=== PATIENT | female | born 1965 | race Caucasian/White ===

== ENCOUNTER 2016-02-21 12:20 | Outpatient (CLI) | payer OTHER | END 2016-02-21 12:21 | disposition home or self-care (01) | DX: R92.8 Other abnormal and inconclusive findings on diagnostic imaging of breast (principal) ==

== ENCOUNTER 2016-10-11 12:05 | Outpatient (CLI) | payer OTHER ==
--- NOTE | 2016-10-11 17:56 | XRAY Report ---
COMPLETE LUMBAR SPINE: 10/11/2016 CLINICAL INDICATION: Back pain, chronic. AP, lateral, oblique, coned-down views of the lumbar spine demonstrate minimal degenerative disk and facet disease. There is no evidence of fracture or subluxation. The bowel gas pattern appears unrem arkable. IMPRESSION: MINIMAL DEGENERATIVE CHANGES. JOB #: [id number] EXT JOB #:[id number]
== END 2016-10-11 12:06 | disposition home or self-care (01) ==
LOC: LAB 12:05
PROVIDERS: ATTEND Physician Assistant Medical
DX: M51.36 Other intervertebral disc degeneration, lumbar region (principal); M47.9 Spondylosis, unspecified
CPT/HCPCS: 72110

== ENCOUNTER 2016-10-20 12:26 | Outpatient (CLI) | payer OTHER ==
--- NOTE | 2016-10-21 10:16 | MRI Report ---
EXAM: MRI LUMBAR SPINE WITHOUT CONTRAST EXAM DATE: 10/20/2016 01:20 PM. CLINICAL HISTORY: Worsening low back pain. Report of low back pain 1-1/2 years after lifting injury. COMPARISON: No prior MRI. TECHNIQUE: Multiplanar, multisequence T1-weighted and fluid-sensitive sequences of the lumbar spine f rom T12 to S1 without contrast. Other: None. FINDINGS: Spinal Cord: The conus terminates at L1. No signal abnormality in the visualized spinal cord. Alignment: Normal. No scoliosis or spondylolisthesis. Bone Marrow: Five vzu-oxy-eedwzut lumbar vertebral bodies are assumed. No acute vertebral body height loss or marrow edema. Incidental T11 vertebral body hemangioma. Disk Levels/Facets: T12-L1: Small chronic Schmorl's nodes. Otherwise unremarkable. L1-L2: Minimal degenerative disk disease posteriorly. Slight annular bulge. Otherwise unremarkable, n o stenosis. L2-L3: Minimal degenerative disk space dehydration and narrowing. Shallow broad-based bulge. Minimal anterior marginal spurring. Unremarkable facets. No stenosis. L3-L4: Minimal disk space dehydration and narrowing. Diffuse annular disk bulge. Additional more foca l intraforaminal disk extrusion on the right creating moderate to marked right foraminal stenosis wit h potential for right L3 nerve root impingement. This focal intraforaminal herniation measures about 8 x 6 mm. Patent central canal and left foramen. L4-L5: Minimally narrowed disk space. Bilateral intraforaminal disk protrusions, larger on the right than the left. Annular fissure is associated with the right intraforaminal protrusion. Patent central canal. Foraminal stenosis is mild on the left and moderate on the right. L5-S1: Minimal disk space narrowing and dehydration. Negligible facet arthropathy. Small focal disk p rotrusion with annular fissure to the right of midline, at the inferior junction of the right subarti cular and foraminal zones. Associated stenosis is mild. There is no evidence for nerve root impingeme nt or displacement. Musculature: Normal. No edema or fatty atrophy. Other: Approximately 3 cm circumscribed fluid signal structure is present in the pelvis near the midl ine superior to the expected location of the uterus; this is nonspecific, potentially a cyst or promi nent ovarian follicle. IMPRESSION: 1. Moderately prominent foraminal stenosis on the right from intraforaminal disk herniation at the L3 -L4 level with potential for nerve root impingement. 2. Intraforaminal disk protrusions at L4-L5 associated with foraminal stenosis that is mild on the le ft and moderate on the right. 3. Small right posterior paracentral disk protrusion with annular fissure at the L5-S1 level; associa terrance stenosis is minimal, no definite nerve root compression. 4. 3 cm pelvic cyst or cystlike structure, possibly of ovarian origin. Comment: The following findings are so common in adults without low back pain that while we report th eir presence, they must be interpreted with caution and in the context of the clinical situation. (Re marva Lee et al, Spine 2001) Prevalence of findings in patients without low back pain: Disk degeneration (any evidence): 92% Disk desiccation/T2 signal loss: 83% Disk height loss: 56% Disk bulge: 64% Disk protrusion: 32% Annular tear/high intensity zone: 38% [facility] Referring Provider Line: [phone] SITE ID: [id number]
== END 2016-10-20 12:27 | disposition home or self-care (01) ==
LOC: DI 12:26
PROVIDERS: ATTEND Physician Assistant Medical
DX: M54.5 Low back pain (principal); G89.29 Other chronic pain; M51.26 Other intervertebral disc displacement, lumbar region
CPT/HCPCS: 72148

== ENCOUNTER 2016-11-02 17:02 | Outpatient (CLI) | payer OTHER ==
--- NOTE | 2016-11-05 08:48 | Ultrasound Report ---
EXAM: PELVIC ULTRASOUND EXAM DATE: 11/02/2016 06:58 PM. CLINICAL HISTORY: Pelvic cyst on MRI 10/20/2016. LMP 10/31/2016. COMPARISON: Lumbar spine MRI 10/20/2016. TECHNIQUE: Realtime transabdominal pelvic scan performed to identify the uterus and adnexa and as an overview of other pelvic structures, followed by transvaginal scan to provide greater detail of the u terus and adnexa, with static image documentation. FINDINGS: Uterus: Anteverted position. 8.5 x 4.3 x 6.0 cm, volume 115 cc. Mildly heterogeneous myometrium with a solitary anterior intramural fibroid measuring 1.6 x 1.5 x 1.6 cm. Endometrium: 3-4 mm. Normal. Cervix: Nabothian cyst. Right Ovary: 3.2 x 2.1 x 2.4 cm, volume 8.2 cc. Normal echotexture. Contains a simple cyst/dominant f ollicle measuring 1.8 x 1.6 x 1.7 cm. Left Ovary: 3.6 x 2.9 x 3.3 cm, volume 18.3 cc. Normal echotexture. Contains a simple cyst/dominant f ollicle measuring 2.7 x 2.3 x 2.3 cm. Free Fluid: None. Other: None. IMPRESSION: 1. Solitary small intramural anterior uterine fibroid. 2. Simple ovarian cysts/dominant follicles bilaterally, physiologic findings in a premenopausal patie nt not requiring imaging follow-up. [facility] Referring Provider Line: [phone] SITE ID: [id number]
== END 2016-11-02 17:03 | disposition home or self-care (01) ==
LOC: DI 17:02
PROVIDERS: ATTEND Physician Assistant Medical
DX: D25.1 Intramural leiomyoma of uterus (principal); N83.292 Other ovarian cyst, left side; N83.291 Other ovarian cyst, right side
CPT/HCPCS: 76830; 76856

== ENCOUNTER 2017-03-14 09:37 | Outpatient (CLI) | payer OTHER ==
[2017-03-14 09:58] LABS: BASOPHILS % (AUTO) 0.4 %; EOSINOPHILS # (AUTO) 0.1 10^3/uL (0.0-0.7); EOSINOPHILS % (AUTO) 0.7 %; HGB - HEMOGLOBIN 13.5 g/dL (12.0-16.0); LYMPHOCYTES % (AUTO) 9.6 %; MEAN CORPUSCULAR HEMOGLOBIN 29.1 pg (27.0-31.0); MEAN CORPUSCULAR VOLUME 88.1 fL (81.0-99.0); MEAN PLATELET VOLUME 7.9 fL (7.9-10.8); MONOCYTES # (AUTO) 0.5 10^3/uL (0.0-1.0); MONOCYTES % (AUTO) 4.9 %; NEUTROPHILS # (AUTO) 8.7 10^3/uL (1.5-6.6); NEUTROPHILS % (AUTO) 84.4 %; PLT - PLATELET COUNT 247 10^3/uL (130-450); RED BLOOD COUNT 4.64 10^6/uL (4.20-5.40); RED CELL DISTRIBUTION WIDTH 14.2 % (12.0-15.0); WHITE BLOOD COUNT 10.3 x10^3/uL (4.8-10.8)
[2017-03-14 11:20] LABS: ALBUMIN 4.3 g/dL (3.2-5.5); ALBUMIN/GLOBULIN RATIO 1.3 (1.0-2.2); ALKALINE PHOSPHATASE 38 IU/L (42-121); ALT ALANINE AMINOTRANSFERASE 18 IU/L (10-60); AST ASPARTATE AMINOTRANSFERASE 25 IU/L (10-42); BILIRUBIN,TOTAL 1.1 mg/dL (0.2-1.0); BUN - BLOOD UREA NITROGEN 12 mg/dL (6-20); CALCIUM 9.1 mg/dL (8.5-10.3); CARBON DIOXIDE - CO2 21 mmol/L (21-32); CHLORIDE 101 mmol/L (101-111); CHOL/HDL RATIO 2.8 (<4.4); CHOLESTEROL 181 mg/dL; CREATININE 0.9 mg/dL (0.4-1.0); GFR - MDRD 66 (>89); GLUCOSE 62 mg/dL (70-100); HDL CHOLESTEROL 64 mg/dL; LDL CHOLESTEROL,CALCULATED 107 mg/dL; LDL/HDL RATIO 1.7 (<4.4); SODIUM 137 mmol/L (135-145); TOTAL PROTEIN 7.5 g/dL (6.7-8.2); VLDL CHOLESTEROL 10 mg/dL
[2017-03-15 11:51] LABS: HEPATITIS C ANTIBODY NON-REACTIVE (NON-REACTIVE)
== END 2017-03-14 09:38 | disposition home or self-care (01) ==
LOC: LAB 09:37
PROVIDERS: ATTEND Physician Assistant Medical
DX: Z00.00 Encounter for general adult medical examination without abnormal findings (principal); Z79.899 Other long term (current) drug therapy; E55.9 Vitamin D deficiency, unspecified; D50.9 Iron deficiency anemia, unspecified; Z11.59 Encounter for screening for other viral diseases; Z72.89 Other problems related to lifestyle; E78.2 Mixed hyperlipidemia
CPT/HCPCS: 36415; 80053; 80061; 82306; 83721; 84443; 85025; 86803

== ENCOUNTER 2017-03-14 09:55 | Day surgery (SDC) | payer OTHER ==
[2017-03-14] MEDS ORDERED: LACTATED RINGERS 1,000 ML IV ONE ×2 (10:04→12:11)
--- NOTE | 2017-03-14 12:01 | HISTORY & PHYSICAL EXAMINATION ---
HPI - History of Present Illness HPI Comment/Other: Patient here for first screening colonoscopy. Current Meds: GENTLE IRON 28-60-0.008-0.4 MG ORAL CAPSULE (FE BISGLY-VIT C-VIT B12-FA) [facility] MELATONIN 3 MG ORAL TABLET (MELATONIN) 1 by mouth as needed ASPIRIN EC 81 MG ORAL TABLET DELAYED RELEASE (ASPIRIN) Take one tablet by mouth once daily with food EQL VITAMIN D3 2000 UNIT ORAL CAPSULE (CHOLECALCIFEROL) 1 by mouth daily ZOCOR 10 MG ORAL TABLET (SIMVASTATIN) Take one tablet by mouth at bedtime Past Medical History: Reviewed history and no changes required: Hyperlipidemia Past Surgical History: Reviewed history and no changes required: BTL C section Family History Summary: Reviewed history and no changes required: 01/02/2017 Mother (biol.) - Has Family History of Breast Cancer - Entered On: 01/02/2017 Father (biol.) - Has Family History of Heart Disease - Pancreatic cancer - Entered On: 01/02/2017 Father (biol.) - Has Family History of Other Cancer - Pancreatic cancer - Entered On: 01/02/2017 Social History: Reviewed history and no changes required: Risk Factors: Smoked Tobacco Use: Never smoker Alcohol use: yes Type: rare Exercise: yes Times per week: 3 Type of Exercise: cardio Review of Systems See HPI Problems were reviewed with the patient during this visit. Medications were reviewed with the patient during this visit. Allergies were reviewed with the patient during this visit. Allergies: SULFA (Mild) Physical Exam General: well developed, well nourished, in no acute distress Lungs: clear bilaterally to A & P Heart: regular rate and rhythm, S1, S2 without murmurs, rubs, gallops, or clicks Abdomen: bowel sounds positive; abdomen soft and non-tender without masses, organomegaly, or hernias noted Pulses: pulses normal in all 4 extremities Extremities: no clubbing, cyanosis, edema, or deformity noted with normal full range of motion of all joints Impression & Recommendations: Problem # 1: screening colonoscopy Will proceed with colonoscopy. PMH/PSH - Past Medical History Cardiovascular: positive: High cholesterol Respiratory: positive: None Endocrine/Autoimmune: positive: None GI: positive: GERD : positive: None HEENT: positive: None Psych: positive: None Musculoskeletal: positive: None Derm: positive: None MRSA Hx?: No Meds/Allgy - Home Medications Home Medications: Ambulatory Orders Medication Instructions Recorded Confirmed Aspirin 81 mg PO 03/13/17 Cholecalciferol (Vitamin D3) 1,000 unit PO 03/13/17 [Vitamin D3] Iron,Carbonyl [Iron Chews] 15 mg PO 03/13/17 Melatonin 1 mg PO 03/13/17 Simvastatin [Zocor] 20 mg PO 03/13/17 Ibuprofen [Advil] 400 mg PO PRN 03/14/17 - Allergies Allergies/Adverse Reactions: Allergies Allergy/AdvReac Type Severity Reaction Status Date / Time Sulfa (Sulfonamide Allergy Rash Verified 03/13/17 13:23 Antibiotics) Exam - Vital Signs Vital Signs: Vital Signs x48h Temp Pulse Resp BP Pulse Ox 03/14/17 10:05 36.5 C 81 16 116/74 100
[2017-03-14] MEDS ORDERED: MIDAZOLAM 2 MG/2 ML VIAL IVP ONE (12:06)
[2017-03-14] MEDS ORDERED: fentaNYL 100 MCG/2 ML VIAL IVP ONE (12:06)
[2017-03-14 12:56] VITALS: BP 133/60
[2017-03-14] MEDS ORDERED: ONDANSETRON 4 MG/2 ML VIAL ONE (16:27)
== END 2017-03-14 09:56 | disposition home or self-care (01) ==
LOC: SDS 09:55
PROVIDERS: ATTEND Surgery
PROC: 0DJD8ZZ Inspection of Lower Intestinal Tract, Via Natural or Artificial Opening Endoscopic (ICD-10-PCS; principal; 2017-03-14 11:00)
DX: Z12.11 Encounter for screening for malignant neoplasm of colon (principal); K64.8 Other hemorrhoids; E78.5 Hyperlipidemia, unspecified; Z00.00 Encounter for general adult medical examination without abnormal findings; Z79.899 Other long term (current) drug therapy; E55.9 Vitamin D deficiency, unspecified; D50.9 Iron deficiency anemia, unspecified; E11.59 Type 2 diabetes mellitus with other circulatory complications; Z72.89 Other problems related to lifestyle; E78.2 Mixed hyperlipidemia
CPT/HCPCS: 36415; 45378; 80053; 80061; 82306; 84443; 85025; 86803; J7120; 83721

== ENCOUNTER 2017-05-22 08:59 | Outpatient (CLI) | payer OTHER ==
--- NOTE | 2017-05-23 10:11 | Mammography Report ---
DIGITAL SCREENING MAMMOGRAM: 05/22/2017 HISTORY: Family history of breast cancer. TECHNIQUE: Bilateral digital CC and MLO projections. COMPARISON: 02/09/2016. FINDINGS: Scattered fibroglandular densities. No dominant mass, architectural distortion, skin thickening, suspicious clustered microcalcifications, or interval change. IMPRESSION: NEGATIVE - BI-RADS CATEGORY 1. SUGGEST ROUTINE FOLLOWUP IN 12 MONTHS. STANDARD QUALIFYING STATEMENTS: 1. This examination was reviewed with the aid of Computer-Aided Detection (CAD). 2. A negative or benign imaging report should not delay biopsy if clinically suspicious findings are present. Consider surgical consultation if warranted. More than 5% of cancers are not identified by imaging. 3. Dense breasts may obscure an underlying neoplasm. TD: 05/23/2017 10:11
== END 2017-05-22 09:00 | disposition home or self-care (01) ==
LOC: DI 08:59
PROVIDERS: ATTEND Physician Assistant Medical
DX: Z12.31 Encounter for screening mammogram for malignant neoplasm of breast (principal); Z80.3 Family history of malignant neoplasm of breast
CPT/HCPCS: 77067

== ENCOUNTER 2017-07-31 19:51 | Outpatient (CLI) | payer OTHER ==
--- NOTE | 2017-08-01 08:36 | XRAY Report ---
Procedure Date: 07/31/2017 Accession Number: [id number] / [id number] Procedure: XR - Calcaneus LT CPT Code: FULL RESULT: EXAM: Calcaneus LT DATE: 07/31/2017 8:22 PM CLINICAL HISTORY: LEFT HEEL PAIN TECHNIQUE: 2 view left calcaneus COMPARISON: Left foot films 10/11/2005 FINDINGS: There is no evidence of acute fracture. The joint spaces are preserved. No foreign body is seen in the soft tissues. IMPRESSION: Normal left calcaneus.
== END 2017-07-31 19:52 | disposition home or self-care (01) ==
LOC: DI 19:51
PROVIDERS: ATTEND Physician Assistant Medical
DX: M79.672 Pain in left foot (principal)

== ENCOUNTER 2018-06-13 08:09 | Outpatient (CLI) | payer OTHER ==
--- NOTE | 2018-06-13 08:53 | Mammography Report ---
Reason: SCREENING MAMMO Procedure Date: 06/13/2018 Accession Number: [id number] / [id number] Procedure: DEEPA - Screening Mammo w/Carlos CPT Code: FULL RESULT: EXAM: Screening Mammo w/Carlos DATE: 06/13/2018 8:40 AM CLINICAL HISTORY: Screening examination. Family history of breast cancer in the mother at age 79. TECHNIQUE: (B) - Bilateral CC and MLO views were obtained. COMPARISON: 05/22/2017 through 07/07/2014. PARENCHYMAL PATTERN: (A) - The breast(s) demonstrate(s) scattered fibroglandular densities. FINDINGS: There are no suspicious masses, calcifications, or areas of distortion. IMPRESSION: Negative examination. BI-RADS category 1. RECOMMENDATION: (ANNUAL) - Recommend routine annual screening mammography. BI-RADS CATEGORY: (1) - Negative. STANDARD QUALIFYING STATEMENTS: 1. This examination was not reviewed with the aid of Computer-Aided Detection (CAD). 2. A negative or benign imaging report should not preclude biopsy if clinically suspicious findings are present. 3. Dense breasts may obscure an underlying neoplasm. 4. This examination was reviewed with the aid of 3D breast imaging (tomosynthesis).
== END 2018-06-13 08:10 | disposition home or self-care (01) ==
LOC: DI 08:09
PROVIDERS: ATTEND Internal Medicine
DX: Z12.31 Encounter for screening mammogram for malignant neoplasm of breast (principal); Z80.3 Family history of malignant neoplasm of breast
CPT/HCPCS: 77063; 77067

== ENCOUNTER 2018-06-13 08:49 | Outpatient (CLI) | payer OTHER ==
[2018-06-13 09:10] LABS: HGB - HEMOGLOBIN 13.2 g/dL (12.0-16.0); MEAN CORPUSCULAR HEMOGLOBIN 28.6 pg (27.0-31.0); MEAN CORPUSCULAR VOLUME 86.6 fL (81.0-99.0); MEAN PLATELET VOLUME 7.2 fL (7.9-10.8); RED BLOOD COUNT 4.61 10^6/uL (4.20-5.40); RED CELL DISTRIBUTION WIDTH 14.4 % (12.0-15.0); WHITE BLOOD COUNT 5.6 x10^3/uL (4.8-10.8)
[2018-06-13 09:26] LABS: ALBUMIN 3.9 g/dL (3.2-5.5); ALBUMIN/GLOBULIN RATIO 1.1 (1.0-2.2); ALKALINE PHOSPHATASE 57 IU/L (42-121); ALT ALANINE AMINOTRANSFERASE 24 IU/L (10-60); AST ASPARTATE AMINOTRANSFERASE 23 IU/L (10-42); BILIRUBIN,TOTAL 0.8 mg/dL (0.2-1.0); BUN - BLOOD UREA NITROGEN 13 mg/dL (6-20); CALCIUM 9.2 mg/dL (8.5-10.3); CARBON DIOXIDE - CO2 25 mmol/L (21-32); CHLORIDE 105 mmol/L (101-111); CHOL/HDL RATIO 2.7 (<4.4); CHOLESTEROL 204 mg/dL; CREATININE 0.8 mg/dL (0.4-1.0); GFR - MDRD 75 (>89); GLUCOSE 102 mg/dL (70-100); HDL CHOLESTEROL 76 mg/dL; LDL CHOLESTEROL,CALCULATED 117 mg/dL; LDL/HDL RATIO 1.5 (<4.4); SODIUM 140 mmol/L (135-145); TOTAL PROTEIN 7.4 g/dL (6.7-8.2); VLDL CHOLESTEROL 11 mg/dL
== END 2018-06-13 08:50 | disposition home or self-care (01) ==
LOC: LAB 08:49
PROVIDERS: ATTEND Internal Medicine
DX: E78.5 Hyperlipidemia, unspecified (principal); D50.9 Iron deficiency anemia, unspecified
CPT/HCPCS: 36415; 80053; 80061; 83721; 85027

== ENCOUNTER 2019-10-19 15:50 | Emergency (ER) | payer OTHER ==
--- NOTE | 2019-10-19 16:35 | ED Physician Documentation ---
PD HPI CHEST PAIN - Stated complaint Stated Complaint: CHEST PX - Chief complaint Chief Complaint: Cardiac - History obtained from History obtained from: Patient - Additional information Additional information: Since yesterday he has had constant very mild substernal nonradiating chest pain not associated with shortness of breath. It is more worrying than anything else. She denies pedal edema or calf pain. She had a similar episode several months ago that she was not seen for And she attributed it to anxiety. No history of heart problems but her father had a heart attack at a relatively george g age and she does have hypercholesterolemia. The pain does not change with exertion. Review of Systems Ten Systems: 10 systems reviewed and negative Constitutional: reports: Reviewed and negative Throat: reports: Reviewed and negative Respiratory: reports: Reviewed and negative PD PAST MEDICAL HISTORY - Past Medical History Cardiovascular: High cholesterol Respiratory: None Endocrine/Autoimmune: None GI: GERD : None HEENT: None Psych: None Musculoskeletal: None Derm: None - Present Medications Home Medications: Ambulatory Orders Medication Instructions Recorded Confirmed Aspirin 81 mg PO 03/13/17 Cholecalciferol (Vitamin D3) 1,000 unit PO 03/13/17 [Vitamin D3] Iron,Carbonyl [Iron Chews] 15 mg PO 03/13/17 Melatonin 1 mg PO 03/13/17 Simvastatin [Zocor] 20 mg PO 03/13/17 Ibuprofen [Advil] 400 mg PO PRN 03/14/17 - Allergies Allergies/Adverse Reactions: Allergies Allergy/AdvReac Type Severity Reaction Status Date / Time Sulfa (Sulfonamide Allergy Rash Verified 10/19/19 15:59 Antibiotics) PD ED PE NORMAL - Vitals Vital signs reviewed: Yes - General General: Alert and oriented X 3, No acute distress - HEENT HEENT: PERRL, EOMI - Neck Neck: Supple, no meningeal sign, No bony TTP - Cardiac Cardiac: RRR, No murmur - Respiratory Respiratory: No respiratory distress, Clear bilaterally - Abdomen Abdomen: Non tender - Back Back: No CVA TTP, No spinal TTP - Derm Derm: Normal color, Warm and dry - Extremities Extremities: No edema, No calf tenderness / cord - Neuro Neuro: Alert and oriented X 3, Normal speech Results - Vitals Vitals: Vital Signs - 24 hr 10/19/19 10/19/19 15:53 18:00 Temperature 37.3 C 36.6 C Heart Rate 96 77 Respiratory 18 14 Rate Blood Pressure 143/83 H 128/74 O2 Saturation 98 98 Oxygen O2 Source Room air - EKG (time done) 1600 Rate: Rate (enter#) (85) Rhythm: NSR Sargent: Normal Intervals: Normal LA QRS: Normal Ischemia: Normal ST segments Computer interpretation: Agree with computer - Labs Labs: Laboratory Tests 10/19/19 10/19/19 10/19/19 16:40 16:40 16:40 WBC 8.0 RBC 4.95 Hgb 14.1 Hct 44.3 MCV 89.5 MCH 28.5 MCHC 31.8 L RDW 13.7 Plt Count 286 MPV 9.3 Neut # (Auto) 5.8 Lymph # (Auto) 1.4 L [place] # (Auto) 0.7 Eos # (Auto) 0.1 Baso # (Auto) 0.0 Absolute Nucleated RBC 0.00 Nucleated RBC % 0.0 Sodium 137 Potassium 3.8 Chloride 102 Carbon Dioxide 25 Anion Gap 10.0 BUN 17 Creatinine 0.9 Estimated GFR (MDRD) 65 L Glucose 95 Calcium 9.6 Total Bilirubin 0.5 AST 22 ALT 23 Alkaline Phosphatase 57 Troponin I High Sens < 2.3 L Total Protein 7.6 Albumin 4.4 Globulin 3.2 Albumin/Globulin Ratio 1.4 Lipase 35 - Rads (name of study) 1v chest Radiology: EMP read contemporaneously (NAD) PD MEDICAL DECISION MAKING - ED course ED course: Heart score 2 Departure - Departure Disposition: 01 Home, Self Care Clinical Impression: Atypical chest pain Condition: Good Record reviewed to determine appropriate education?: Yes Instructions: ED Chest Pain Atypical Unkn Cause Comments: No evidence of acute coronary syndrome on work-up today, follow-up with your doctor, next available ointment for repeat evaluation and further treatment. Return if worse. Discharge Date/Time: 10/19/19 18:02
[2019-10-19 16:45] LABS: BASOPHILS % (AUTO) 0.4 %; EOSINOPHILS # (AUTO) 0.1 10^3/uL (0.0-0.7); HGB - HEMOGLOBIN 14.1 g/dL (12.0-16.0); LYMPHOCYTES # (AUTO) 1.4 10^3/uL (1.5-3.5); LYMPHOCYTES % (AUTO) 17.6 %; MEAN CORPUSCULAR HEMOGLOBIN 28.5 pg (27.0-31.0); MEAN CORPUSCULAR HGB CONC 31.8 g/dL (32.0-36.0); MEAN CORPUSCULAR VOLUME 89.5 fL (81.0-99.0); MEAN PLATELET VOLUME 9.3 fL (7.9-10.8); MONOCYTES # (AUTO) 0.7 10^3/uL (0.0-1.0); MONOCYTES % (AUTO) 8.3 %; NEUTROPHILS # (AUTO) 5.8 10^3/uL (1.5-6.6); NEUTROPHILS % (AUTO) 72.3 %; PLT - PLATELET COUNT 286 10^3/uL (130-450); RED BLOOD COUNT 4.95 10^6/uL (4.20-5.40); RED CELL DISTRIBUTION WIDTH 13.7 % (12.0-15.0)
[2019-10-19 16:57] LABS: ALBUMIN 4.4 g/dL (3.2-5.5); ALBUMIN/GLOBULIN RATIO 1.4 (1.0-2.2); BILIRUBIN,TOTAL 0.5 mg/dL (0.2-1.0); CALCIUM 9.6 mg/dL (8.5-10.3); CREATININE 0.9 mg/dL (0.4-1.0); TOTAL PROTEIN 7.6 g/dL (6.7-8.2)
--- NOTE | 2019-10-19 17:51 | XRAY Report ---
PROCEDURE: Chest 1 View X-Ray INDICATIONS: Chest Pain TECHNIQUE: One view of the chest was acquired. COMPARISON: None FINDINGS: Surgical changes and devices: None. Lungs and pleura: No pleural effusions or pneumothorax. Lungs are clear. Mediastinum: Mediastinal contours appear normal. Heart size is normal. Bones and chest wall: No suspicious bony lesions. Overlying soft tissues appear unremarkable. IMPRESSION: No acute process. Reviewed by: Evens Oconnor MD on 10/19/2019 5:50 PM PDT Approved by: Evens Oconnor MD on 10/19/2019 5:50 PM PDT Station ID: [id number]
[2019-10-19 18:02] VITALS: BP 128/74
== END 2019-10-19 18:02 | disposition home or self-care (01) ==
LOC: ED 15:50
DX: R07.89 Other chest pain (principal); E78.00 Pure hypercholesterolemia, unspecified; Z82.49 Family history of ischemic heart disease and other diseases of the circulatory system; Z79.82 Long term (current) use of aspirin
CPT/HCPCS: 36415; 71045; 80053; 83690; 84484; 85025; 93005; 99284

== ENCOUNTER 2019-11-09 10:15 | Outpatient (CLI) | payer OTHER ==
--- NOTE | 2019-11-09 13:36 | CARDIAC PROCEDURE NOTE ---
DATE OF SERVICE: 11/09/2019 Physician: Teresita Claire MD INDICATION: Atypical chest pain. CARDIAC RISK FACTORS 1. Hyperlipidemia. 2. Postmenopausal status. 3. Family history of early heart disease (her father had cardiac disease in his 30s). PROCEDURE: After signing informed consent, the patient underwent a Charles- protocol treadmill stress test with nuclear myocardial perfusion imaging. RESTING HEART RATE: 52. PEAK HEART RATE: 154 (93% predicted maximum heart rate for age). RESTING BLOOD PRESSURE: 121/70. PEAK BLOOD PRESSURE: 171/63. The patient exercised for 8 minutes and 21 seconds on a Charles-protocol treadmill stress test. She achieved a peak heart rate of 154 (93% PMHR) and 10.2 METs. Patient had mild shortness of breath. The patient had no chest pain with exercise. She rated her perceived exertion at 17/20 on the Abdelrahman scale at peak. Oxygen saturation was 94%-99% on room air throughout the test. After 4 minutes of recovery, the patient described her typical anterior chest discomfort, which she rated 01/10. An EKG was done at that time and was no different than the peak EKG. The chest pain resolved spontaneously in 1 minute. RESTING EKG: Sinus bradycardia, within normal limits. EKG AT PEAK: Inferolateral scooping ST-depressions of 2 mm are present at peak. SUMMARY 1. Normal resting EKG. 2. Good exercise tolerance. 3. Nonspecific changes of ST scooping abnormalities occur at peak exercise, not specific for ischemia. 4. The patient had her typical chest pain, which was not associated with ischemic changes. 5. This patient's cardiac risk based on all the above: Low (but her lifetime risk is Moderate because of her risk factors). 6. NUCLEAR IMAGES WERE REPORTED SEPARATELY AND SHOWED no fixed or ischemic perfusion defects, no transient ischemic dilatation. CONCLUSION: NORMAL STRESS TEST cc: RA Cho, CERAMIC WORKER-C Vikram Reich MD TD: 11/09/2019 13:04 [facility]
--- NOTE | 2019-11-09 15:35 | Nuclear Medicine Report ---
PROCEDURE: Rest and exercise myocardial perfusion SPECT with gated imaging and ejection fraction INDICATIONS: ATYPICAL CHEST PAIN RADIOPHARMACEUTICAL: 8.2 mCi Tc-99m Myoview IV at rest and 26.1 mCi Tc-99m Myoview IV at peak exerci se. [id number]-[id number] was performed. TECHNIQUE: Radiopharmaceutical was injected at peak stress test, and also at rest. SPECT images wer e obtained. SPECT myocardial perfusion images were displayed in short axis, horizontal long axis, an d vertical long axis views. Gated images were reviewed using AutoQUANT software. COMPARISON: None available. FINDINGS: Raw data: There is good myocardial labeling by radiotracer. No significant motion artifacts. Lung- to-heart ratio is 0.35 (normal is less than 0.38 for tetrafosmin tracer). Left ventricle function: Gated images demonstrate normal left ventricle wall thickening. No segment al wall motion abnormality. No transient ischemic dilation; TID is 0.97 (normal less than 1.3). The left ventricle resting end-diastolic volume is normal. Left ventricle stress ejection fraction is 0 .35; normal values are above 45%. Myocardial perfusion: There is normal distribution of activity in the left and right ventricular mara cardium. No fixed or reversible perfusion defects. IMPRESSION: 1. Normal myocardial perfusion images. No perfusion defect to suggest myocardial ischemia or infarct. 2. Normal left ventricular volume and systolic function. PQRS ATTESTATIONS: Measure 322 - Is this imaging test primarily performed on a low-risk surgery patient for preoperative evaluation within 30 days preceding their low-risk non-cardiac surgery? Low-risk surgery is defined as cardiac or myocardial infarction less than 1%, including (but not limited to) endoscopic pr ocedures, superficial procedures, cataract surgery, and excisional breast surgery: Answer: No Measure 323 - Is this imaging test performed primarily for the monitoring of an asymptomatic patient who had percutaneous coronary intervention on the visit date or within 2 years of the visit date? An swer: No Measure 324 - Is this imaging test performed primarily for the initial detection and risk assessment on an asymptomatic, low coronary heart disease patient? Low CHD risk definition = clinicians should consider the maximum number of available patient factors used to estimate risk based on [place] (A TP III criteria), typically age, gender, diabetes, smoking status, and use of blood pressure medicati on, and integrate age appropriate estimates for missing elements, such as LDL or standard blood press ure. Answer: No Reviewed by: Monica Rangel MD on 11/09/2019 3:34 PM PDT Approved by: Monica Rangel MD on 11/09/2019 3:34 PM PDT Station ID: [id number]
== END 2019-11-09 10:16 | disposition home or self-care (01) ==
LOC: DI 10:15
PROVIDERS: ATTEND Family Medicine
DX: R07.89 Other chest pain (principal)
CPT/HCPCS: 78452; 93017; A9500

== ENCOUNTER 2020-05-27 08:12 | Outpatient (CLI) | payer OTHER ==
[2020-05-27 08:25] LABS: BASOPHILS % (AUTO) 0.8 %; EOSINOPHILS # (AUTO) 0.2 10^3/uL (0.0-0.7); EOSINOPHILS % (AUTO) 4.6 %; HCT - HEMATOCRIT 42.7 % (37.0-47.0); LYMPHOCYTES # (AUTO) 1.6 10^3/uL (1.5-3.5); LYMPHOCYTES % (AUTO) 31.3 %; MEAN CORPUSCULAR HEMOGLOBIN 28.6 pg (27.0-31.0); MEAN CORPUSCULAR HGB CONC 32.8 g/dL (32.0-36.0); MEAN CORPUSCULAR VOLUME 87.3 fL (81.0-99.0); MEAN PLATELET VOLUME 9.3 fL (7.9-10.8); MONOCYTES # (AUTO) 0.6 10^3/uL (0.0-1.0); MONOCYTES % (AUTO) 11.9 %; NEUTROPHILS # (AUTO) 2.7 10^3/uL (1.5-6.6); PLT - PLATELET COUNT 257 10^3/uL (130-450); RED BLOOD COUNT 4.89 10^6/uL (4.20-5.40); RED CELL DISTRIBUTION WIDTH 13.5 % (12.0-15.0); WHITE BLOOD COUNT 5.2 x10^3/uL (4.8-10.8)
[2020-05-27 08:41] LABS: ALBUMIN/GLOBULIN RATIO 1.3 (1.0-2.2); ALKALINE PHOSPHATASE 60 IU/L (42-121); ALT ALANINE AMINOTRANSFERASE 38 IU/L (10-60); AST ASPARTATE AMINOTRANSFERASE 28 IU/L (10-42); BILIRUBIN,TOTAL 0.6 mg/dL (0.2-1.0); BUN - BLOOD UREA NITROGEN 17 mg/dL (6-20); CALCIUM 9.5 mg/dL (8.5-10.3); CARBON DIOXIDE - CO2 28 mmol/L (21-32); CHLORIDE 105 mmol/L (101-111); CHOL/HDL RATIO 2.7 (<4.4); CHOLESTEROL 217 mg/dL; CREATININE 0.8 mg/dL (0.4-1.0); GFR - MDRD 74 (>89); GLUCOSE 109 mg/dL (70-100); HDL CHOLESTEROL 80 mg/dL; LDL CHOLESTEROL,CALCULATED 121 mg/dL; LDL/HDL RATIO 1.5 (<4.4); POTASSIUM 4.2 mmol/L (3.5-5.0); SODIUM 139 mmol/L (135-145); TOTAL PROTEIN 7.2 g/dL (6.7-8.2); TRIGLYCERIDES 79 mg/dL; VLDL CHOLESTEROL 16 mg/dL
[2020-05-27 09:07] LABS: THYROID STIMULATING HORMONE 3.4 uIU/mL (0.34-5.60)
== END 2020-05-27 08:13 | disposition home or self-care (01) ==
LOC: LAB 08:12
PROVIDERS: ATTEND Nurse Practitioner
DX: Z00.00 Encounter for general adult medical examination without abnormal findings (principal); R07.89 Other chest pain; F43.0 Acute stress reaction; Z79.899 Other long term (current) drug therapy; Z78.0 Asymptomatic menopausal state; E78.5 Hyperlipidemia, unspecified; G47.00 Insomnia, unspecified
CPT/HCPCS: 36415; 80053; 80061; 83721; 84443; 85025

== ENCOUNTER 2020-09-06 13:48 | Outpatient (CLI) | payer OTHER ==
--- NOTE | 2020-09-07 15:13 | Mammography Report ---
BILATERAL DIGITAL SCREENING MAMMOGRAM 3D/2D: 09/06/2020 CLINICAL: Routine screening. Comparison is made to exams dated: 08/13/2019 ultrasound, [facility], 08/06/2019 mammogram, 06/13/2018 mammogram, 06/13/2018 mammogram, and 05/22/2017 mammogram - [facility]. There are scattered fibroglandular elements in both breasts. No significant masses, calcifications, or other findings are seen in either breast. There has been no significant interval change. IMPRESSION: NEGATIVE There is no mammographic evidence of malignancy. A 1 year screening mammogram is recommended. This exam was interpreted at Station ID: [id number]. NOTE: For mammograms, a report in lay terms will be sent to the patient. Approximately 15% of breast malignancies will not be visualized mammographically. In the management of a palpable breast mass, a negative mammogram must not discourage biopsy of a clinically suspicious lesion. Electronically Signed By: Nico Jarquin M.D. ddp/penrad:09/06/2020 14:44:13 ACR BI-RADS Category 1: Negative 3341F PARENCHYMAL PATTERN: (A) - The breast(s) demonstrate(s) scattered fibroglandular densities. BI-RADS CATEGORY: (1) - 1 RECOMMENDATION: (ANNUAL) - Recommend routine annual screening mammography. [id number] 1 year screening LATERALITY: (B)
== END 2020-09-06 13:49 | disposition home or self-care (01) ==
LOC: DI 13:48
PROVIDERS: ATTEND Family Medicine
DX: Z12.31 Encounter for screening mammogram for malignant neoplasm of breast (principal)

== ENCOUNTER 2020-11-08 19:29 | Outpatient (CLI) | payer OTHER ==
--- NOTE | 2020-11-09 08:49 | Ultrasound Report ---
PROCEDURE: Ext Limited Non Vascular INDICATIONS: LEFT KNEE BAKERS CYST TECHNIQUE: Real-time scanning was performed of the left knee, with image documentation. COMPARISON: None. FINDINGS: Mild fluid is present within the knee joint. However, no definitive Green cyst or other fl uid collection is identified. Popliteal vein appears patent. IMPRESSION: Mild knee joint fluid without visualized Green's cyst. Reviewed by: Sherine Shea MD on 11/09/2020 8:48 AM PDT Approved by: Sherine Shea MD on 11/09/2020 8:48 AM PDT Station ID: [id number]
== END 2020-11-08 19:30 | disposition home or self-care (01) ==
LOC: DI 19:29
PROVIDERS: ATTEND Family Medicine
DX: M25.462 Effusion, left knee (principal)

== ENCOUNTER 2021-01-24 17:38 | Outpatient (CLI) | payer OTHER ==
--- NOTE | 2021-01-24 18:09 | XRAY Report ---
PROCEDURE: Ankle 3 View RT INDICATIONS: RIGHT ANKLE PAIN TECHNIQUE: 3 views of the ankle were acquired. COMPARISON: None FINDINGS: Bones: No fractures or dislocations. Ankle mortise is normally aligned. No suspicious bony lesions . Soft tissues: No tibiotalar joint effusion. Achilles tendon appears normal. IMPRESSION: No ankle fracture or dislocation. Ankle mortise is congruent. No gross soft tissue abnor mality. Reviewed by: Yordan Quevedo MD on 01/24/2021 6:07 PM [facility] Approved by: Yordan Quevedo MD on 01/24/2021 6:07 PM PST Station ID: [id number]
== END 2021-01-24 23:59 | disposition home or self-care (01) ==
LOC: DI.N 17:38
PROVIDERS: ATTEND Physician Assistant Medical
DX: M25.571 Pain in right ankle and joints of right foot (principal)

== ENCOUNTER 2021-06-19 08:55 | Outpatient (CLI) | payer OTHER ==
--- NOTE | 2021-06-19 09:17 | XRAY Report ---
PROCEDURE: Knee 3 View RT INDICATIONS: M25.561, PX IN RT KNEE TECHNIQUE: 3 views of the right knee knee(s) were acquired. COMPARISON: None. FINDINGS: Bones: No fractures or dislocations. Medial joint space narrowing. No suspicious bony lesions. Soft tissues: No joint effusion. No suspicious soft tissue calcifications. IMPRESSION: 1. No acute abnormality. 2. Medial joint space narrowing can be seen with meniscal disorder. Reviewed by: Stefan Dumont on 06/19/2021 9:16 AM PDT Approved by: Stefan Dumont on 06/19/2021 9:16 AM PDT Station ID: [id number]
== END 2021-06-19 08:56 | disposition home or self-care (01) ==
LOC: DI 08:55
PROVIDERS: ATTEND Physician Assistant
DX: M17.11 Unilateral primary osteoarthritis, right knee (principal)

== ENCOUNTER 2021-08-27 10:06 | Outpatient (CLI) | payer OTHER ==
[2021-08-27 10:32] LABS: BASOPHILS % (AUTO) 0.7 %; EOSINOPHILS # (AUTO) 0.3 10^3/uL (0.0-0.7); EOSINOPHILS % (AUTO) 4.6 %; HCT - HEMATOCRIT 39.8 % (37.0-47.0); LYMPHOCYTES # (AUTO) 1.6 10^3/uL (1.5-3.5); LYMPHOCYTES % (AUTO) 29.9 %; MEAN CORPUSCULAR HEMOGLOBIN 28.2 pg (27.0-31.0); MEAN CORPUSCULAR HGB CONC 32.7 g/dL (32.0-36.0); MEAN CORPUSCULAR VOLUME 86.3 fL (81.0-99.0); MEAN PLATELET VOLUME 9.2 fL (7.9-10.8); MONOCYTES # (AUTO) 0.6 10^3/uL (0.0-1.0); MONOCYTES % (AUTO) 10.8 %; NEUTROPHILS # (AUTO) 2.9 10^3/uL (1.5-6.6); NEUTROPHILS % (AUTO) 53.8 %; PLT - PLATELET COUNT 282 10^3/uL (130-450); RED BLOOD COUNT 4.61 10^6/uL (4.20-5.40); RED CELL DISTRIBUTION WIDTH 13.9 % (12.0-15.0); WHITE BLOOD COUNT 5.4 x10^3/uL (4.8-10.8)
[2021-08-27 10:34] LABS: BILIRUBIN,URINE NEGATIVE (NEGATIVE); GLUCOSE, URINE (UA) NEGATIVE (NEGATIVE); KETONES,URINE (UA) NEGATIVE (NEGATIVE); LEUKOCYTE ESTERASE, URINE NEGATIVE (NEGATIVE); NITRITE,URINE NEGATIVE (NEGATIVE); OCCULT BLOOD,URINE NEGATIVE (NEGATIVE); PROTEIN,URINE NEGATIVE (NEGATIVE); UROBILINOGEN,URINE 0.2 (NORMAL) E.U./dL (NORMAL)
[2021-08-27 10:41] LABS: CLARITY,URINE CLEAR (CLEAR)
[2021-08-27 10:49] LABS: BACTERIA,URINE None Seen /HPF (None Seen); RBC,URINE 0-5 /HPF (0-5); SQUAMOUS EPITHELIAL CELL,UR RARE Squamous (<= Few); WBC,URINE 0-3 /HPF (0-5)
[2021-08-27 10:51] LABS: ALBUMIN 3.9 g/dL (3.2-5.5); ALBUMIN/GLOBULIN RATIO 1.3 (1.0-2.2); ALKALINE PHOSPHATASE 58 IU/L (42-121); ALT ALANINE AMINOTRANSFERASE 21 IU/L (10-60); AST ASPARTATE AMINOTRANSFERASE 20 IU/L (10-42); BILIRUBIN,TOTAL 0.6 mg/dL (0.2-1.0); BUN - BLOOD UREA NITROGEN 13 mg/dL (6-20); CALCIUM 9.1 mg/dL (8.5-10.3); CARBON DIOXIDE - CO2 26 mmol/L (21-32); CHLORIDE 104 mmol/L (101-111); CHOL/HDL RATIO 2.9 (<4.4); CHOLESTEROL 194 mg/dL; CREATININE 0.8 mg/dL (0.4-1.0); GFR - MDRD 74 (>89); GLUCOSE 105 mg/dL (70-100); HDL CHOLESTEROL 67 mg/dL; LDL CHOLESTEROL,CALCULATED 104 mg/dL; LDL/HDL RATIO 1.6 (<4.4); POTASSIUM 4.3 mmol/L (3.5-5.0); SODIUM 138 mmol/L (135-145); TRIGLYCERIDES 115 mg/dL; VLDL CHOLESTEROL 23 mg/dL
[2021-08-27 11:03] LABS: THYROID STIMULATING HORMONE 2.63 uIU/mL (0.34-5.60)
== END 2021-08-27 10:07 | disposition home or self-care (01) ==
LOC: LAB 10:06
PROVIDERS: ATTEND Nurse Practitioner
DX: E78.5 Hyperlipidemia, unspecified (principal); R53.83 Other fatigue
CPT/HCPCS: 36415; 80053; 80061; 81001; 82607; 83721; 84443; 85025; 87086

== ENCOUNTER 2022-09-04 07:36 | Outpatient (CLI) | payer OTHER ==
[2022-09-04 07:48] LABS: BASOPHILS % (AUTO) 0.6 %; EOSINOPHILS # (AUTO) 0.3 10^3/uL (0.0-0.7); EOSINOPHILS % (AUTO) 4.8 %; HGB - HEMOGLOBIN 13.9 g/dL (12.0-16.0); LYMPHOCYTES # (AUTO) 1.6 10^3/uL (1.5-3.5); LYMPHOCYTES % (AUTO) 23.8 %; MEAN CORPUSCULAR HEMOGLOBIN 27.6 pg (27.0-31.0); MEAN CORPUSCULAR HGB CONC 32.3 g/dL (32.0-36.0); MEAN CORPUSCULAR VOLUME 85.3 fL (81.0-99.0); MONOCYTES # (AUTO) 0.6 10^3/uL (0.0-1.0); MONOCYTES % (AUTO) 8.9 %; NEUTROPHILS % (AUTO) 61.4 %; PLT - PLATELET COUNT 332 10^3/uL (130-450); RED BLOOD COUNT 5.04 10^6/uL (4.20-5.40); RED CELL DISTRIBUTION WIDTH 14.2 % (12.0-15.0); WHITE BLOOD COUNT 6.5 x10^3/uL (4.8-10.8)
[2022-09-04 08:10] LABS: ALBUMIN 4.4 g/dL (3.2-5.5); ALBUMIN/GLOBULIN RATIO 1.2 (1.0-2.2); ALKALINE PHOSPHATASE 68 IU/L (42-121); ALT ALANINE AMINOTRANSFERASE 29 IU/L (10-60); AST ASPARTATE AMINOTRANSFERASE 21 IU/L (10-42); BILIRUBIN,TOTAL 0.5 mg/dL (0.2-1.0); BUN - BLOOD UREA NITROGEN 11 mg/dL (6-20); CALCIUM 9.1 mg/dL (8.5-10.3); CARBON DIOXIDE - CO2 28 mmol/L (21-32); CHLORIDE 103 mmol/L (101-111); CHOLESTEROL 198 mg/dL; CREATININE 0.9 mg/dL (0.4-1.0); GFR - MDRD 64 (>89); GLUCOSE 132 mg/dL (70-100); HDL CHOLESTEROL 67 mg/dL; LDL CHOLESTEROL,CALCULATED 107 mg/dL; LDL/HDL RATIO 1.6 (<4.4); POTASSIUM 4.1 mmol/L (3.5-5.0); SODIUM 139 mmol/L (135-145); TOTAL PROTEIN 8.2 g/dL (6.7-8.2); TRIGLYCERIDES 118 mg/dL; VLDL CHOLESTEROL 24 mg/dL
== END 2022-09-04 07:37 | disposition home or self-care (01) ==
LOC: LAB 07:36
PROVIDERS: ATTEND Nurse Practitioner
DX: R03.0 Elevated blood-pressure reading, without diagnosis of hypertension (principal); K21.9 Gastro-esophageal reflux disease without esophagitis; E78.5 Hyperlipidemia, unspecified
CPT/HCPCS: 36415; 80053; 80061; 83721; 85025

== ENCOUNTER 2022-10-02 13:42 | Outpatient (CLI) | payer OTHER ==
--- NOTE | 2022-10-03 09:51 | Mammography Report ---
BILATERAL DIGITAL SCREENING MAMMOGRAM 3D/2D: 10/02/2022 CLINICAL: Routine screening. Comparison is made to exams dated: 09/06/2020 mammogram - [facility], 08/13/2019 randy mogram - [facility], 08/06/2019 mammogram, 06/13/2018 mammogram, and 06/13/2018 mammogram - [facility]. There are scattered areas of fibroglandular density in both breasts (category b / 25%-50% glandular t issue). No significant masses, calcifications, or other findings are seen in either breast. There has been no significant interval change. IMPRESSION: NEGATIVE There is no mammographic evidence of malignancy. A 1 year screening mammogram is recommended. Based on the Tyrer Cuzick model (a risk assessment model) the patients lifetime risk is 17.0% and he r 10 year risk is 6.4%. According to the ACR, ACS, and NCCN guidelines, an annual breast MRI exam karson ng with mammogram is recommended if the patients lifetime risk is 20% or greater. This exam was interpreted at Station ID: [id number]. NOTE: For mammograms, a report in lay terms will be sent to the patient. Approximately 15% of breast malignancies will not be visualized mammographically. In the management of a palpable breast mass, a negative mammogram must not discourage biopsy of a clinically suspicious lesion. Electronically Signed By: rBittni nieves/niko:10/02/2022 17:30:42 letter sent: No_Letter ACR BI-RADS Category 1: Negative 3341F PARENCHYMAL PATTERN: (A) - The breast(s) demonstrate(s) scattered fibroglandular densities. BI-RADS CATEGORY: (1) - 1 Mammogram [id number] 1 year screening LATERALITY: (B)
== END 2022-10-02 13:43 | disposition home or self-care (01) ==
LOC: DI 13:42
PROVIDERS: ATTEND Nurse Practitioner
DX: Z12.31 Encounter for screening mammogram for malignant neoplasm of breast (principal)

== ENCOUNTER 2023-01-15 11:49 | Outpatient (CLI) | payer OTHER ==
[2023-01-15 12:46] LABS: INFLUENZA A- RESP PCR PANEL NOT DETECTED; INFLUENZA B - RESP PCR PANEL NOT DETECTED; RSV- RESP PCR PANEL NOT DETECTED; SARS-CoV-2 -RESP PCR PANEL NOT DETECTED
== END 2023-01-15 11:50 | disposition home or self-care (01) ==
LOC: LAB 11:49
PROVIDERS: ATTEND Family Medicine
DX: Z20.822 Contact with and (suspected) exposure to COVID-19 (principal)
CPT/HCPCS: 87637